=== PATIENT | male | born 1995 | race American Indian/Alaskan Native ===

== ENCOUNTER 2017-04-26 14:28 | Emergency (ER) | payer OTHER ==
[2017-04-26 14:36] VITALS: BP 124/73; PULSE 73; RESP 16; TEMP 97.5; O2SAT 99
--- NOTE | 2017-04-26 15:00 | ED PDOC ---
HPI: Headache Time Seen by Provider: 04/26/17 14:50 Chief Complaint (Nursing): Headache Chief Complaint (Provider): Headache History Per: Patient History/Exam Limitations: no limitations Onset/Duration Of Symptoms: Days (4) Current Symptoms Are (Timing): Still Present Severity: Moderate Quality: Pressure, "Pain" Preceeding Symptoms: None Associated Symptoms: denies: Photophobia, Blurred Vision, Nausea, Vomiting, Extremity Weakness Additional History Per: Patient Additional Complaint(s): The pt is a 22yo male, presents to the ED for evaluation of a frontal headache, located mostly in his forehead for the past 4 days. Pt reports some pain behind his left eye as well. States the pain subsides a little at night but is worse when he wakes up. Denies any recent vision changes or strenuous use of his eyes. Additionally pt denies any scratchy throat or itchy ears. He reports taking some Tylenol for the pain with some relief. Past Medical History Reviewed: Historical Data, Nursing Documentation, Vital Signs Vital Signs: Last Vital Signs Temp 97.5 F L 04/26/17 14:34 Pulse 73 04/26/17 14:34 Resp 16 04/26/17 14:34 BP 124/73 04/26/17 14:34 Pulse Ox 99 04/26/17 14:34 - Medical History PMH: No Chronic Diseases - Surgical History Surgical History: No Surg Hx - Family History Family History: States: No Known Family Hx - Home Medications Home Medications: Ambulatory Orders Medication Instructions Recorded Amoxicillin/Clavulanate [Augmentin 1 tab PO BID #20 tab 04/26/17 875 MG-125 MG] Cetirizine HCl [Zyrtec] 10 mg PO DAILY #15 capsule 04/26/17 Fluticasone Propionate [Flonase] 2 actuation NS DAILY #1 bottle 04/26/17 Naproxen [Naprosyn Tab] 1 tab PO TID PRN #15 tab 04/26/17 - Allergies Allergies/Adverse Reactions: Allergies Allergy/AdvReac Type Severity Reaction Status Date / Time No Known Allergies Allergy Verified 04/26/17 14:34 Review of Systems ROS Statement: Except As Marked, All Systems Reviewed And Found Negative Eyes: Negative for: Vision Change Neurological: Positive for: Headache (forehead pain) Physical Exam - Reviewed Nursing Documentation Reviewed: Yes Vital Signs Reviewed: Yes - Physical Exam Appears: Positive for: Well, Non-toxic, No Acute Distress Skin: Positive for: Normal Color, Warm, DRY Eye Exam: Positive for: EOMI, Normal appearance, PERRL ENT: Positive for: Normal ENT Inspection Neck: Positive for: Normal, Supple Cardiovascular/Chest: Positive for: Regular Rate, Rhythm Respiratory: Positive for: Normal Breath Sounds. Negative for: Respiratory Distress Neurologic/Psych: Positive for: Alert, Oriented - ECG O2 Sat by Pulse Oximetry: 99 (RA) Pulse Ox Interpretation: Normal Medical Decision Making Medical Decision Making: Time: 1500 Impression: Headache Plan: -- CT Head -- Naproxyn --Reassess Time: 171 CT Head Impression: No acute intracranial hemorrhage. Complete opacification left maxillary sinus with subtotal opacification of multiple left-sided ethmoid air cells extending superiorly into the frontal sinus. Pt stable for d/c home. Scribe Attestation: All records were documented by Lucía Hassan, acting as a Scribe for FIDELINA Wheeler. Provider Scribe Attestation: All medical record entries made by the Scribe were at my direction and personally dictated by me. I have reviewed the chart and agree that the record accurately reflects my personal performance of the history, physical exam, medical decision making, and the department course for this patient. I have also personally directed, reviewed, and agree with the discharge instructions and disposition. Disposition - Clinical Impression Clinical Impression: Headache - Disposition Referrals: Yifan Diaz MD [Staff Provider] - Cheko Phoenix MD [Staff Provider] - Disposition Time: 17:18 Condition: FAIR Prescriptions: Amoxicillin/Clavulanate [Augmentin 875 MG-125 MG] 1 tab PO BID #20 tab Cetirizine HCl [Zyrtec] 10 mg PO DAILY #15 capsule Fluticasone Propionate [Flonase] 2 actuation NS DAILY #1 bottle Naproxen [Naprosyn Tab] 1 tab PO TID PRN #15 tab PRN Reason: Pain, Moderate (4-7) Instructions: Tension Headache (ED)
--- NOTE | 2017-04-26 17:06 | CT ---
PROCEDURE: CT HEAD WITHOUT CONTRAST. HISTORY: HEADACHE COMPARISON: None available. TECHNIQUE: Axial computed tomography images were obtained through the head/brain without intravenous contrast. Radiation dose: Total exam DLP = 839.67 mGy-cm. This CT exam was performed using one or more of the following dose reduction techniques: Automated exposure control, adjustment of the mA and/or kV according to patient size, and/or use of iterative reconstruction technique. FINDINGS: HEMORRHAGE: No acute parenchymal, subarachnoid or extra-axial hemorrhage. BRAIN: No mass effect or edema. No atrophy or chronic microvascular ischemic changes. VENTRICLES: Unremarkable. No hydrocephalus. CALVARIUM: No acute calvarial fractures Note made of a few small calcifications and or radiopaque densities scattered throughout the frontal scalp bilaterally. PARANASAL SINUSES: Complete opacification left maxillary sinus and subtotal opacification of multiple left-sided ethmoid air cells extending superiorly into the left aspect of the frontal sinus. Questionable small fluid level within the frontal sinus. MASTOID AIR CELLS: Unremarkable as visualized. No inflammatory changes. OTHER FINDINGS: None. IMPRESSION: No acute intracranial hemorrhage. Complete opacification left maxillary sinus with subtotal opacification of multiple left-sided ethmoid air cells extending superiorly into the frontal sinus.
== END 2017-04-26 17:27 | disposition home or self-care (01) ==
LOC: H.ER 14:28
DX: R51 Headache (principal)